=== PATIENT | female | born 1955 | race Caucasian/White ===

== ENCOUNTER 2024-12-09 12:37 | Emergency (ER) | payer OTHER, SELFPAY ==
[2024-12-09 12:38] VITALS: BP 179/109
--- NOTE | 2024-12-09 13:27 | ED.GENMED ---
History of Present Illness
General
Chief Complaint: Musculo-Skeletal Complaint
Source: patient
Exam Limitations: none
Time Seen by Provider: 12/09/24 13:19
Nursing documentation reviewed up to this point in time: agreed with
History of Present Illness
History of Present Illness:
Patient is a 69-year-old female with history of COPD cirrhosis hep C alcohol abuse stage IV cancer presents to the ER for evaluation. Patient has chronic pain to the right hip and leg and ran out of her pain medication. she is on oxycodone 15
mg. She is supposed to get it refilled tomorrow. She is prescribed this medicine for her chronic pain medicine by Dr. Elias
She denies any new pain or new injury. She denies any swelling fever chills. Patient with no other complaints.. She reports that she ran out yesterday. reports was supposed to last 2 more days but he was giving it to her wrong.
She is also currently being followed by [facility].
Past History
Past History
ED Past Medical History: COPD, Psychiatric and Other (IVDA)
ED Past Surgical History: Orthopedic
Social History
Tobacco: Smoker
Alcohol: None
Drug: None
Personal:
Living: with family
Employment: Employed
Family History
Family History: Other (Father with coronary disease brother with bipolar)
Phy Exam
General Physical Exam
General Presentation: no apparent distress
General age: appears stated age
General Skin: warm and dry
General Habitus: normal
General Mental: alert
General Hydration: appears well hydrated
Cardiovascular Exam
Cardiovascular Exam: regular rate/rhythm and normal peripheral pulses
Pulmonary Exam
Pulmonary Exam: lungs clear and no respiratory distress
Neurological Exam
Neurological Exam: alert
Musculoskeletal Exam
Musculoskeletal Exam: other (Right lower extremity with normal inspection no pain with range of motion no swelling or redness strong distal pulses full range of motion to hips no redness or rash )
Skin Exam
Skin Exam: normal color and warm/dry
Psychiatric Exam
Psychiatric Exam: normal mood/affect
Course
Orders/Labs/Results
Orders:
Orders
12/09/24 13:57
Ketorolac [Toradol] 30 mg IV NOW STA
12/09/24 14:01
Vital Signs- Treatment ONCE
Frequency: Once
12/09/24 14:04
Ketorolac [Toradol] 30 mg IM NOW STA
12/09/24 14:10
Oxycodone [Roxicodone] 15 mg PO STAT STA
Vital Signs
Initial and Last Documented VS:
Initial Vital Signs
Temp Pulse Resp BP Pulse Ox
99.2 F 98 20 179/109 99
12/09/24 12:38 12/09/24 12:38 12/09/24 12:38 12/09/24 12:38 12/09/24 12:38
Last Documented Vital Signs
Temp Pulse Resp BP Pulse Ox
99.2 F 84 16 160/91 99
12/09/24 12:38 12/09/24 14:18 12/09/24 14:18 12/09/24 14:18 12/09/24 12:38
MDM/Problems Addressed
MDM/Problems Addressed:
As documented patient pt reports she ran out of her pain medication as chronic pain ;recently being worked up for stage IV cancer ; reports he was given her medicine wrong and she ran out 2 days early. This is prescribed by her family
doctor. This pain is not new it is about a-year-old. She complains of pain in the right leg no new swelling injury or fevers. She is in no acute distress will give patient 1 dose of oral pain medication however I did discuss with patient that we
will not be able to prescribe her any additional medication .
she will have to follow-up with her family doctor .She is in no acute distress and stable appearing.
Chronic conditions affecting care:
Chronic pain, stage IV cancer
*Critical Care Note
Total Time (30-74mins, 75-104mins- exclusive of procedures): Not Applicable
ED Attending Note
-
Portions of this chart may have been created with voice recognition software.� Occasional wrong word or��sound alike� substitutions may have occurred due to the inherent limitations of voice recognition software.
Discharge Plan
Departure
Patient Disposition: Home (Routine Discharge)
Date of Disposition: 12/09/24
Time of Disposition: 14:01
Patient with high blood pressure during this ER visit?: Yes
Discharge Problem:
Chronic pain
Instructions: Chronic pain
Prescriptions:
No Action
methadone [Methadose] 100 MG/10 ML concentrate
265 mg PO DAILY
Patient Comments:
03/08/21- Dr. Jenkins confirmed with [facility] this morning
01/04/22 LATESHA CALLED [facility] GOT VM LEFT MESSAGE FOR A FAX
01/04/22- recieved fax from [facility]
celecoxib 200 mg capsule
200 mg PO BID
ondansetron HCl 4 mg Tablet
4 mg PO Q6H PRN (Reason: NAUSEA)
meclizine 25 mg Tablet
25 mg PO TID PRN (Reason: dizzness)
pantoprazole 40 mg tablet,delayed release (DR/EC)
40 mg PO DAILY
albuterol sulfate 90 mcg/actuation Hfa Aerosol Inhaler
2 puff INHALATION R Q6 PRN (Reason: SOB)
ipratropium bromide 42 mcg (0.06 %) [place],Non-Aerosol
2 spray INTRANASAL TID
Spiriva Respimat 1.25 mcg/actuation Mist
2 puff INHALATION R DAILY
albuterol sulfate 2.5 mg /3 mL (0.083 %) Solution For Nebulization
2.5 mg inhalation R Q4HPRN PRN (Reason: SOB/WHEEZE) Qty: 180 0RF
gabapentin 250 mg/5 mL Solution
300 mg PO DAILY Qty: 473 0RF
budesonide 0.5 mg/2 mL Suspension For Nebulization
0.5 mg inhalation R BID Qty: 60 0RF
olanzapine 5 mg Tablet,Disintegrating
2.5 mg PO Q6HPRN PRN (Reason: acute agitation) Qty: 30 0RF
Referrals:
Stephanie Elias DO [Family Provider, Family Practice]
Activity Restrictions/Additional Instructions:
Follow-up with your family doctor for further management of your symptoms and medication management. Return if any worsening of symptoms
Interventions
Interventions:
*Risk Screen - Suicide Last Done: 12/09/24 12:38
*General Assessment Last Done: 12/09/24 12:38
*Neglect/Abuse Screening Last Done: 12/09/24 12:38
*Nursing Disposition Last Done: 12/09/24 14:42
ED-Musculoskeletal Assessment Last Done: 12/09/24 13:38
Discharge Date and Time
Discharge Date/Time: 12/09/24 14:43
Print Language: [id number]
[2024-12-09 13:38] VITALS: BMI 22.3
[2024-12-09] MEDS: TORADOL 30 MG IM (14:09)
[2024-12-09] MEDS: ROXICODONE 15 MG PO (14:15)
[2024-12-09 14:18] VITALS: BP 160/91
== END 2024-12-09 14:43 | disposition home or self-care (01) ==
LOC: EMR 12:37
PROVIDERS: EMERGENCY PHYSICIAN Emergency Medicine; FAMILY PHYSICIAN Family Medicine
DX: G89.29 Other chronic pain (principal); M25.551 Pain in right hip; M79.604 Pain in right leg; C80.1 Malignant (primary) neoplasm, unspecified; J44.9 Chronic obstructive pulmonary disease, unspecified; F17.200 Nicotine dependence, unspecified, uncomplicated; Z86.19 Personal history of other infectious and parasitic diseases
CPT/HCPCS: 96372; 99284